=== PATIENT | female | born 2000 | race Caucasian/White ===

== ENCOUNTER 2023-09-05 15:03 | Emergency (ER) | payer OTHER, BC ==
[~2023-09-05] VITALS: Ht 167.6 cm; Wt 88.4 kg
[2023-09-05] MEDS ORDERED: IBUP-1984 PO (16:08)
[2023-09-05] MEDS ORDERED: PRED20TA PO (16:08)
[2023-09-05] MEDS ORDERED: BACL10TA2 PO (16:08)
[2023-09-05] MEDS: diazepam 5mg tablet PO ONE (16:26)
[2023-09-05] MEDS: ketorolac tromethamine 15mg/ml inj. IM ONE (16:29)
[2023-09-05 16:39] VITALS: BP 129/86; PULSE 80; RESP 17; TEMP 98; O2SAT 98
== END 2023-09-05 16:40 | disposition home or self-care (01) ==
LOC: ER 15:03
DX: S16.1XXA Strain of muscle, fascia and tendon at neck level, initial encounter (principal); Z79.1 Long term (current) use of non-steroidal anti-inflammatories (NSAID); Z79.899 Other long term (current) drug therapy; V49.69XA Unspecified car occupant injured in collision with other motor vehicles in traffic accident, initial encounter; Y93.89 Activity, other specified; Y92.89 Other specified places as the place of occurrence of the external cause; Y99.8 Other external cause status
CPT/HCPCS: 96372; 99283; J1885